=== PATIENT | male | born 1945 | race Caucasian/White ===

== ENCOUNTER 2017-02-16 17:31 | Inpatient (IN) | payer OTHER ==
[~2017-02-16] VITALS: Ht 170.2 cm; Wt 70.3 kg
--- NOTE | ~2017-02-16 | HC ---
[facility] [place] [place] [address] CONSULTATION Name: DMITRIY BRAND Room #: 243-P ADM IN M.R.#: [id number] Admission: 02/16/17 Attend Phys: Rakel Awad Discharge: Date of : 43 Report #: [id number] THIS REPORT FOR: //name// CC: Santiago Matthews REASON FOR CONSULTATION: I was asked to evaluate concerning pulmonary infiltrates and respiratory compromise along with sepsis. HISTORY OF PRESENT ILLNESS: The patient is a 71-year-old with underlying ischemic cardiomyopathy and aortic insufficiency along with significant alcohol intake. He presented on 02/16/2017, with respiratory failure, some chest pain, found to have a large left pleural effusion. He has known cirrhosis with ascites. He had alcoholic hepatitis. . Now on nonrebreather intensive care unit. Blood pressure has been stable, but he has had poor urine output. No documented fever. He was started on cefepime and Levaquin. He had minimal sputum production. The patient was alert, but a poor historian. PAST MEDICAL HISTORY: COPD, coronary artery disease, ischemic cardiomyopathy, moderate aortic regurgitation, hypertension, hyperlipidemia, nephrolithiasis, peripheral vascular disease, AICD, abdominal aortic aneurysm status post stent graft, carotid endarterectomy, bilateral lower extremity atherectomies, and coronary artery bypass grafting. ALLERGIES: To PENICILLIN. MEDICATIONS: As noted on his MAR, now on Levaquin and cefepime. FAMILY HISTORY: Noncontributory. SOCIAL HISTORY: Lives alone, drinks on a daily basis. Previous work as a contractor. No reported chest pain, abdominal pain, diarrhea, dysuria, but now has a [place] catheter. He has peripheral IVs in place. PHYSICAL EXAMINATION: VITAL SIGNS: He is afebrile, heart rate 102, blood pressure 109/54, MAP of 72, he is on a nonrebreather mask. EYES: Unremarkable. MOUTH: Edentulous. NECK: Supple. LUNGS: Decreased breath sounds in the left base posteriorly, crackles heard throughout the right chest. HEART: Regular with a 1/6 diastolic murmur heard at left sternal border. [facility] [address] [place] [address] CONSULTATION Name: DMITRIY BRAND Room #: [facility]-P ADM IN M.R.#: [id number] Admission: 02/16/17 Attend Phys: Rakel Awad Discharge: Date of : 43 Report #: [id number] ABDOMEN: Soft. Liver was palpable below the costal margin and nontender. EXTREMITIES: Unremarkable. LABORATORY STUDIES: Sodium 130, potassium 3.9, bicarbonate 27, creatinine 1, AST 140, ALT 339, bilirubin 2.5, direct 1.3; and alk phos 103. Hemoglobin 13.3, platelet count 128,000, white count 14.8, sedimentation rate 5, immunoglobulin IgG 806. TSH 2.7. ABGs on 15 liters nonrebreather, pO2 of 60, pCO2 of 29, pH 7.5, lactate was 2.2. Sputum shows mixed deanna and Gram stain, culture is pending. Blood cultures are pending. He had a thoracentesis on the left on 02/17/2017, which showed transudate. CT scan of the chest today is pending. CT of the abdomen on 02/16/2017, showed cirrhosis and ascites: Chest x-ray today shows bilateral infiltrates, greatest on the right with left effusion. IMPRESSION: A 71-year-old with cardiomyopathy, both ischemic and valvular with heart failure, aspiration pneumonia likely, recurrent left pleural effusion, alcoholic hepatitis and cirrhosis with associated ascites. Recommend continuing antibiotic coverage for nosocomial organisms. Await sputum culture. Check MRSA screen. Discontinue Levaquin. Continue vancomycin and cefepime. Screen for human immunodeficiency virus and tuberculosis. <ELECTRONICALLY SIGNED> By: Jad Verma MD 02/24/17 0838 0954 1529 Jad Verma MD /nt
--- NOTE | ~2017-02-16 | CNG ---
[facility] [place] [address] CYTO-NONGYN REPORT PROCEDURE Name: DMITRIY ROMERO Room #: 211-P ADM IN M.R.#: [id number] Admission: 02/16/17 Date of : 43 Discharge: Report #: [id number] Path Case #: [id number] CYTOPATHOLOGY REPORT COLLECTION DATE: 02/17/2017 RECEIVED DATE: 02/17/2017 SUBMITTING PHYS: Dr. Sharda Matthews OTHER PHYS: Dr. Ovidio Arriaza CLINICAL HISTORY: Pleural Effusion SPECIMEN(S) RECEIVED: A.Pleural fluid,Left * * * * * * * * * * * * FINAL DIAGNOSIS: A. Left Pleural fluid: NEGATIVE FOR MALIGNANT CELLS. Mesothelial cells and inflammatory cells identified. PATHOLOGIST: Stefania Gonzalez M.D. REPORT ELECTRONICALLY SIGNED BY: Stefania Gonzalez M.D. DATE/TIME: 02/18/2017 16:24 * * * * * * * * * * * * GROSS PATHOLOGY: A. Pleural fluid,Left: The specimen is submitted unfixed, labeled "Dmitriy Romero". Received by the Cytology Department is 25 mL of dark cloudy orange fluid. One ThinPrep slide and a cell block were prepared. (mm 02.17.2017) COMIC BOOK DESIGNER(S): WASHINGTON Waters(ASCP) INITIAL CPT CODE(S): A; 75363, 28304 Professional services performed by [facility] at [facility] [address], [place] [address] Technical services performed by [facility] at [address] [place] [address]., [address], [place] [address]. [facility] [address] [place] [address], [address] [facility] [address] [place] [address] CYTO-NONGYN REPORT PROCEDURE Name: DMITRIY ROMERO Room #: 211-P ADM IN M.R.#: [id number] Admission: 02/16/17 Date of : 43 Discharge: Report #: [id number] Path Case #: [id number] [place] [address] PHONE: [phone] DIRECTOR: Luis Daniel Marie M.D. * * * END OF REPORT * * *
--- NOTE | ~2017-02-16 | EKG ---
[place] [address] [facility] [place] [address] ELECTROCARDIOGRAM REPORT Name: NAYA BRANDJANAY SANABRIA Room #: 211-P ADM IN M.R.#: [id number] Admission: 02/16/17 Attend Phys: Rakel Awad Discharge: Date of : 43 Report #: [id number] THIS REPORT FOR: //name// [facility] ED Test Date: 2017-02-16 Test Time: 17:41:10 Pat Name: DMITRIY BRAND Department: Room: 211 Gender: M Procedures Analyst: Sony PUCKETT : 1945 Requested By: Isaías Rai Order Number: [id number] MD: Jesús Villalpando Measurements Intervals [place] Rate: 86 P: 58 IN: 181 QRS: 111 QRSD: 205 T: -30 QT: 485 QTc: 581 Interpretive Statements Sinus rhythm Probable left atrial enlargement RBBB and LPFB No previous ECG available for comparison Electronically Signed On 02-17-2017 8:47:58 CDT by Jesús Villalpando [email or web address] <ELECTRONICALLY SIGNED> By: Jesús Villalpando MD, [facility] 02/17/17 0847 1741 174 Jesús Villalpando MD, FACC /EPI
--- NOTE | ~2017-02-16 | CNG ---
[facility] [place] [address] CYTO-NONGYN REPORT PROCEDURE Name: ROMERO,DMITRIYJANAY SANABRIA Room #: 243-P ADM IN M.R.#: [id number] Admission: 02/16/17 Date of : 43 Discharge: Report #: [id number] Path Case #: [id number] CYTOPATHOLOGY REPORT COLLECTION DATE: 02/23/2017 RECEIVED DATE: 02/23/2017 SUBMITTING PHYS: Dr. Dolores Bird OTHER PHYS: Dr. Rakel Orozco CLINICAL HISTORY: Pleural effusion; anasarca SPECIMEN(S) RECEIVED: A.Pleural fluid * * * * * * * * * * * * FINAL DIAGNOSIS: A. Pleural fluid: - No malignant epithelial cells identified. - Highly reactive mesothelial cells and acute and chronic inflammatory cells identified. PATHOLOGIST: Payton Mcginnis M.D. REPORT ELECTRONICALLY SIGNED BY: Payton Mcginnis M.D. DATE/TIME: 02/24/2017 11:50 * * * * * * * * * * * * GROSS PATHOLOGY: A. Pleural fluid: The specimen is submitted unfixed, labeled "Dmitriy Romero". Received by the Cytology Department is 10 mL of orange fluid. One ThinPrep slide and a cell block were prepared. (kg 02/23/17) TELEMARKETER(S): WASHINGTON Watson([facility]) INITIAL CPT CODE(S): A; 66468, 17069 Professional services performed by [facility] at [facility] [address], [place] [address] Technical services performed by [facility] at [address] [place] [address]., [address], [place] [address]. [facility] [address] [place] [address] CYTO-NONGYN REPORT PROCEDURE Name: DMITRIY ROMERO Room #: 243-P ADM IN M.R.#: [id number] Admission: 02/16/17 Date of : 43 Discharge: Report #: [id number] Path Case #: [id number] [address] [facility] [address] [place] [address] PHONE: [phone] DIRECTOR: Luis Daniel Marie M.D. * * * END OF REPORT * * *
--- NOTE | ~2017-02-16 | HC ---
[facility] [place] [address] [place] [address] CONSULTATION Name: DMITRIY BRAND Room #: 211-P ADM IN M.R.#: [id number] Admission: 02/16/17 Attend Phys: Rakel Awad Discharge: Date of : 43 Report #: [id number] THIS REPORT FOR: //name// CC: Santiago Matthews DATE OF SERVICE: 02/17/2017 CARDIOLOGY CONSULTATION INDICATION: Dyspnea. HISTORY OF PRESENT ILLNESS: This is a 71-year-old gentleman presenting with increasing shortness of breath for the past several weeks. He has also noticed increased lower extremity swelling as well as an increase in his abdominal girth. He reports some chest pressure with ambulation, probably due to congestion. There is no history of fever, cough or orthopnea. In the ER, he was noted to have a large left pleural effusion, undergoing thoracentesis. PAST MEDICAL HISTORY: CABG in 2002. Recent catheterization in 01/2017 reveals patent sequential left internal mammary artery to the second diagonal artery and LAD. Patent vein graft to the PDA. Occlusion involving the left circumflex artery. History of ischemic cardiomyopathy, EF in the 25% to 30% range. Severe aortic insufficiency. ICD, COPD with chronic tobacco use, peripheral vascular disease including carotid endarterectomy, abdominal aortic stent graft and iliac stent. ALLERGIES: PENICILLIN. MEDICATIONS: Include ____ 400 mg 3 times a day, Lipitor 80 mg daily, spironolactone 25 mg daily, Coreg 12.5 mg twice a day, aspirin once a day, Quinapril 20 mg daily, Effexor. SOCIAL HISTORY: Positive for tobacco use, half a pack per day. FAMILY HISTORY: Negative for premature CAD. REVIEW OF SYSTEMS: A full 10-point review of systems performed. Only the pertinent positives and negatives are described in the HPI. PHYSICAL EXAMINATION: VITAL SIGNS: Blood pressure is 110/60, heart rate is 75 beats per minute. GENERAL APPEARANCE: This is a well-developed, well-nourished male in [address] [address] CONSULTATION Name: SUNDAYDMITRIY Room #: [address] [place] [address] IN M.R.#: [id number] Admission: 02/16/17 Attend Phys: Rakel Awad Discharge: Date of : 43 Report #: [id number] respiratory distress. HEAD AND EYES: Normocephalic. Sclerae are anicteric. ENT: Oral mucosa moist. NECK: Supple. LUNGS: Diminished breath sounds bilaterally. CARDIAC: S1, S2 positive, 2/6 systolic murmur. ABDOMEN: Soft, nontender. Bowel sounds positive. EXTREMITIES: 1-2+ bilateral lower extremity edema. ECG reveals sinus rhythm, right bundle branch block, left posterior hemiblock. LABORATORY VALUES: White count is 10.6, hemoglobin is 13.3. Troponin is negative. Creatinine is 1.3. ProBNP is greater than 19,000. ASSESSMENT: 1. Dyspnea attributed to CHF/left pleural effusion status post thoracentesis. He now has a development of ascites and lower extremity edema. Agree with IV diuresis at this time. 2. Aortic insufficiency/severe, has previously been evaluated by surgery regarding replacement, and deemed not a good candidate. The other option would be percutaneous approach. We will discuss this once he is stabilized from his present condition. 3. CABG, coronary anatomy as defined above. The initial troponin level is unremarkable. His episodes of chest pressure is probably related to fluid overload. Continue with medical therapy. 4. ICD, will undergo interrogation. 5. Chronic obstructive pulmonary disease/tobacco use, smoking cessation is discussed. 6. Hypertension: The blood pressure remains stable on the current regimen. 7. Peripheral vascular disease, stable with no issues at present. Thank you for allowing me to participate in the care of your patient. <ELECTRONICALLY SIGNED> By: Ovidio Orozco MD 02/18/17 0754 0946 1327 Ovidio Orozco MD /nt
--- NOTE | ~2017-02-16 | H ---
[facility] [place] [address] HISTORY AND PHYSICAL Name: DMITRIY BRAND Room #: 211-P ADM IN M.R.#: [id number] Admission: 02/16/17 Attend Phys: Rakel Awad Discharge: Date of : 43 Report #: [id number] THIS REPORT FOR: //name// CC: Santiago Matthews ATTENDING PHYSICIAN: Dr. Campbell Lynn. PRIMARY CARE PHYSICIAN: Dr. Santiago Arriaza. CHIEF COMPLAINT: Shortness of breath and chest pain. HISTORY OF PRESENT ILLNESS: The patient is a 71-year-old male who has a history of ischemic cardiomyopathy with last known EF of 25%-30%. He says for the last 2 weeks, he has had shortness of breath associated with some chest pressure. He has also noticed some increasing lower extremity edema over the last 3 days, he has gained at least 15 pounds. He has also noticed that his abdomen has been somewhat distended over the last 3 days. He has been noticing leg pain which he attributes to his edema, but says that the pain is worse whenever he is walking, resolves when he is at rest. He just had a cardiac catheterization [address] Orozco, which did show a 100% circumflex occlusion with severe hypokinesis of the inferior segment. His grafts from previous CABG were patent. He did mention that he has been out of a few of his medications. He thinks one of them is his diuretic. He denies any history of liver problems, but does admit to drinking alcohol daily. He was noted to be somewhat fluid overloaded in the ER and was given a dose of Lasix. He says he has only been able to avoid a small amount since getting the Lasix. PAST MEDICAL HISTORY: COPD, coronary artery disease with prior VT, hypertension, nephrolithiasis, ischemic cardiomyopathy, hyperlipidemia, peripheral arterial disease. PAST SURGICAL HISTORY: CABG x 6-vessels in 2002, tonsillectomy, AICD placement in 2003 with up sequential generator change in 2013, abdominal aortic aneurysm stent graft, carotid endarterectomy, bilateral lower extremity atherectomy. ALLERGIES: PENICILLIN, unknown reaction. HOME MEDICATIONS: Pentoxifylline 400 mg t.i.d., Lipitor 80 mg daily, fish oil 1000 mg daily, carvedilol 12.5 mg b.i.d., quinapril 20 mg daily, spironolactone 25 mg daily, aspirin 325 mg daily, Effexor XR 150 mg daily, calcium with vitamin D 1 tab daily, folic acid 1 mg daily and alendronate 70 mg weekly. SOCIAL HISTORY: The patient lives alone. He was normally drinking 3-4 beers a day, but when he started feeling fluid overloaded, he cut back to 2 beers a day [address] [address] HISTORY AND PHYSICAL Name: DMITRIY BRAND Room #: 211-P ADM IN M.R.#: [id number] Admission: 02/16/17 Attend Phys: Rakle Awad Discharge: Date of : 43 Report #: [id number] and 2 shots of whiskey each evening. He has been drinking daily at least since the age of 14. He denies any history of alcohol withdrawal. He does smoke, he has also been a lifelong smoker. He had previously smoked cigarettes up to a pack per day for 45 years in the last 10 years, he has switched to little cigars and smokes about 4 to 5 of them a day. FAMILY HISTORY: His brother had an VT, his father also had heart disease. REVIEW OF SYSTEMS: Twelve point review of systems was reviewed with the patient, otherwise negative unless stated in the HPI. PHYSICAL EXAMINATION: GENERAL: The patient is an alert male in no acute distress. VITAL SIGNS: Temperature is 36.4, heart rate 89, respirations 20, blood pressure is 108/62, oxygen 91% on room air. HEENT: PERRLA, sclerae are nonicteric. Oral mucosa is pink and moist. NECK: Supple, mild JVD noted. CARDIOVASCULAR: Normal S1, S2. No murmurs, rubs or gallops. RESPIRATORY: Breath sounds are clear bilaterally. No wheezing or rhonchi. Breathing is nonlabored. ABDOMEN: Soft and nondistended. GASTROINTESTINAL: Abdomen is nontender. There is palpable hepatomegaly. Bowel sounds are positive. VASCULAR: 2+ bilateral lower extremity edema. His feet are very cool and pedal pulses are 1+ with decreased cap refills. NEUROLOGIC: The patient is alert and oriented x 3. Speech is clear. He is moving all extremities equally. No focal neuro deficits noted. LABORATORY DATA: WBC is 10.6, hemoglobin 13.3, platelets 183. Sodium 127, potassium 4.1, BUN 14, creatinine 1.3, and glucose 107. LFTs are all elevated with an AST of 172, ALT 148. Alkaline phosphatase 131. Troponins negative. BNP is 19,271 and EKG showing sinus rhythm and chest x-ray showed moderate to large left effusion with compressive atelectasis versus less likely pneumonitis across the mid left lung and CT of abdomen and pelvis shows no inflammatory process, the liver demonstrates both fatty infiltration and possible cirrhosis. There is moderate ascites in both upper abdominal quadrants. The liver shows moderate steatosis. Influenza negative. ASSESSMENT AND PLAN: 1. Acute on chronic systolic heart failure. The patient was given IV Lasix in the emergency room and has had some mild diuresis. He does have heart catheterization last week showing an ejection fraction of 25-30%. He does have an implantable cardioverter-defibrillator in place, continue spironolactone at home and carvedilol and placed on oral fluid restriction. 2. Large left pleural effusion. This may be related to congestive heart failure. He will likely need thoracentesis. We will order interventional [facility] [address] [place] [address] HISTORY AND PHYSICAL Name: DMITRIY BRAND Room #: 211-P ADM IN .R.#: [id number] Admission: 02/16/17 Attend Phys: Rakel Awad Discharge: Date of : 43 Report #: [id number] radiologist for therapeutic and diagnostic thoracentesis in the morning. 3. Transaminitis. The patient does have possible liver cirrhosis per CT. There may also be some fluid congestion of the liver due to congestive heart failure. We will check a hepatitis panel as well as ammonia level. The patient was informed that these changes could reflect alcohol use. 4. Alcohol abuse. The patient denies any prior problems with alcohol withdrawal, we will place on alcohol withdrawal protocol and use Ativan p.r.n. Start multivitamin and thiamine. 5. Peripheral arterial disease with lower extremity claudication. We will continue pentoxifylline at home. Order arterial Dopplers. 6. History of coronary artery disease with prior CABG. The patient denies any chest pain and troponin is negative. 7. Tobacco abuse. The patient has been advised to quit. 8. Deep venous thrombosis prophylaxis, place sequential compression devices. We will continue to follow the patient closely throughout the hospitalization and make changes based on clinical status. <ELECTRONICALLY SIGNED> By: ULISES Virk 02/18/17 0615 0535 0927 ULISES Virk /nt
[~2017-02-16 17:31] MED LIST: ALDACTONE25 MG; ALENDRONATE SOD70 MG PO; ASPIRIN325; ATORVASTATIN CA40 MG; CALCIUM 600 +1 EAC1 PO; CARVEDILOL25 MG PO; CIPRO250 M1 PO; EFFEXOR XR150 MG; FISH OIL 1,0001 EAC5; FISH OIL 1,001000 M2 PO; FOLIC ACID1 MG PO; PENTOXIFYLLINE400 MG PO; QUINU10 PD PO
[2017-02-16 17:39] VITALS: BP 108/62
[2017-02-16 18:13] LABS: ABSOLUTE NEUTROPHILS 7.3 thou/uL (1.4-8.2); BASOPHILS 0.5 % (0.0-2.0); EOSINOPHILS 0.4 % (0.0-3.0); HEMATOCRIT 39.8 % (42.0-52.0); HEMOGLOBIN 13.3 gm/dL (14.0-18.0); MCHC 33.4 g/dL (28.0-37.0); MCV 95.7 fL (80.0-100.0); MONOCYTES 10.3 % (1.0-8.0); PLATELET COUNT 183 thou/uL (150-400); POLYS 68.8 % (36.0-66.0); RBC 4.16 mil/uL (4.50-6.00); RDW 16.1 % (10.5-14.5); WBC 10.6 thou/uL (4.0-11.0)
[2017-02-16 18:18] LABS: MANUAL DIFF NO
[2017-02-16 18:25] LABS: ANION GAP 14 mmol/L (7-16); BUN 14 mg/dL (7-18); CALCIUM 8.6 mg/dL (8.5-10.1); CHLORIDE 89 mmol/L (98-107); CO2 24 mmol/L (21-32); CREATININE 1.3 mg/dL (0.7-1.3); GLUCOSE 107 mg/dL (74-106); POTASSIUM 4.1 mmol/L (3.5-5.1); SODIUM 127 mmol/L (136-145)
[2017-02-16 18:41] LABS: ALKALINE PHOSPHATASE 131 U/L (46-116); SGOT 172 U/L (15-37); SGPT 148 U/L (30-65); TOTAL BILIRUBIN 1.4 mg/dL (<0.1-1.0); TOTAL PROTEIN 6.3 g/dL (6.4-8.2); TROPONIN-I < 0.04 ng/mL (<0.04-0.07)
[2017-02-16 21:24] VITALS: BP 120/68
[2017-02-16 23:46] VITALS: BP 112/63
[2017-02-17] VITALS (7 sets, daily range): BP systolic 90–150; BP diastolic 50–105
[2017-02-17 03:37] LABS: ALBUMIN 2.8 g/dL (3.4-5.0); CALCIUM 8.3 mg/dL (8.5-10.1); CREATININE 1.3 mg/dL (0.7-1.3); POTASSIUM 3.7 mmol/L (3.5-5.1); TOTAL BILIRUBIN 1.7 mg/dL (<0.1-1.0); TOTAL PROTEIN 5.7 g/dL (6.4-8.2)
[2017-02-17 07:50] LABS: INR 1.8
[2017-02-17 07:52] LABS: PROTIME 17.8 Seconds (9.3-11.4)
[2017-02-17 10:15] LABS: CLARITY CLOUDY; COLOR YELLOW; TOTAL VOLUME 60 mL
[2017-02-17 10:20] LABS: BF NUCLEATED CELLS 934; BF RBC 4493; MANUAL DIFF YES
[2017-02-17 11:50] LABS: BF MACROPHAGE 10; BF NEUTROPHILS 3
[2017-02-17 12:07] LABS: HEPATITIS C VIRUS AB <0.1 (0.0-0.9)
[2017-02-18 04:29] LABS: HEMATOCRIT 36.8 % (42.0-52.0); HEMOGLOBIN 12.4 gm/dL (14.0-18.0); MCH 32.3 pg (26.0-34.0); MCHC 33.8 g/dL (28.0-37.0); MCV 95.7 fL (80.0-100.0); RBC 3.84 mil/uL (4.50-6.00); WBC 10.7 thou/uL (4.0-11.0)
[2017-02-18 04:34] VITALS: BP 115/68
[2017-02-18 04:51] LABS: ALBUMIN 2.6 g/dL (3.4-5.0); CALCIUM 8.2 mg/dL (8.5-10.1); CREATININE 1.3 mg/dL (0.7-1.3); POTASSIUM 3.4 mmol/L (3.5-5.1); TOTAL BILIRUBIN 1.7 mg/dL (<0.1-1.0); TOTAL PROTEIN 5.5 g/dL (6.4-8.2)
[2017-02-18 07:15] VITALS: BP 116/57
[2017-02-18 11:30] VITALS: BP 102/48
[2017-02-18 16:00] VITALS: BP 88/45
[2017-02-18 18:50] LABS: COLLECTION DURATION 24 hours; TOTAL VOLUME 2750 mL
[2017-02-18 19:30] VITALS: BP 97/58
[2017-02-19 04:12] LABS: URINE PROTEIN (MG/DL) 10.2 mg/dL (Not Estab.)
[2017-02-19 05:14] VITALS: BP 105/46
[2017-02-19 08:30] VITALS: BP 99/54
[2017-02-19] MEDS ORDERED: FLOMAX0.4 MG PO (08:56)
[2017-02-19] MEDS ORDERED: LASIX 40 MG TAB40 M1 PO (08:56)
[2017-02-19 09:05] VITALS: BP 99/54
[2017-02-19 09:54] VITALS: BP 99/54
[2017-02-19 11:09] LABS: BODY FLUID AMYLASE 18 U/L (()); BODY FLUID GLUCOSE 70 mg/dL (()); BODY FLUID LDH 77 IU/L (()); BODY FLUID PROTEIN 1.7 g/dL (())
[2017-02-19 11:09] LABS: % SATURATION 5 % (20-39); INR 1.5; IRON 17 ug/dL (65-175); PROTIME 15.4 Seconds (9.3-11.4); TIBC 344 ug/dL (250-450); UIBC 327 ug/dL
[2017-02-19 11:42] VITALS: BP 97/54
[2017-02-19 15:10] LABS: IgG 806 mg/dL (700-1600)
[2017-02-19 16:41] LABS: TOTAL BILIRUBIN 1.8 mg/dL (<0.1-1.0); TOTAL PROTEIN 6.2 g/dL (6.4-8.2)
[2017-02-19 18:01] LABS: ABG SAMPLE TYPE ARTERIAL; BE(vivo) 4.6 mmol/L (-2 to +3); HCO3 26.9 mmol/L (22.0-26.0); LACTATE 1.52 mmol/L (0.5-2.0); O2(CT) 16.6 mL/dL (15.0-23.0); O2Hb 89.5 % (92.0-98.0); PCO2 32.8 mmHg (35.0-45.0); PO2 61.3 mmHg (80.0-100.0); pH 7.532 (7.360-7.450); sO2 94.1 % (92.0-98.0); tCO2 27.9 mmol/L (24.0-30.0)
[2017-02-19 18:02] LABS: ABG COMMENT PT. JUMPS WHEN STUCK; STICK SITE R.BRACHIAL
[2017-02-19 21:04] VITALS: BP 96/40
[2017-02-20 04:41] LABS: ALBUMIN 2.7 g/dL (3.4-5.0); CALCIUM 8.1 mg/dL (8.5-10.1); TOTAL BILIRUBIN 1.7 mg/dL (<0.1-1.0); TOTAL PROTEIN 5.8 g/dL (6.4-8.2)
[2017-02-20 05:53] LABS: POTASSIUM 2.6 mmol/L (3.5-5.1)
[2017-02-20 08:00] VITALS: BP 113/59
[2017-02-20 11:10] LABS: CERULOPLASMIN 40.4 mg/dL (16.0-31.0)
[2017-02-20 12:00] VITALS: BP 98/49
[2017-02-20 14:16] LABS: MAGNESIUM 2.2 mg/dL (1.8-2.4); POTASSIUM 3.4 mmol/L (3.5-5.1)
[2017-02-20 16:00] VITALS: BP 105/54
[2017-02-20 20:44] VITALS: BP 96/46
[2017-02-20 23:26] VITALS: BP 115/65
[2017-02-21] VITALS (7 sets, daily range): BP systolic 83–102; BP diastolic 34–57
[2017-02-21 03:56] LABS: ALBUMIN 2.6 g/dL (3.4-5.0); CALCIUM 8.2 mg/dL (8.5-10.1); PHOSPHORUS 3.2 mg/dL (2.5-4.9); POTASSIUM 3.4 mmol/L (3.5-5.1)
[2017-02-21 05:08] LABS: ABG SAMPLE TYPE ARTERIAL; BE(vivo) 1.9 mmol/L (-2 to +3); HCO3 24.4 mmol/L (22.0-26.0); LACTATE 2.02 mmol/L (0.5-2.0); O2(CT) 15.9 mL/dL (15.0-23.0); O2Hb 88.2 % (92.0-98.0); PCO2 31.9 mmHg (35.0-45.0); PO2 56.1 mmHg (80.0-100.0); STICK SITE L.BRACHIAL; pH 7.502 (7.360-7.450); tCO2 25.4 mmol/L (24.0-30.0)
[2017-02-21 06:36] LABS: HEMATOCRIT 34.5 % (42.0-52.0); HEMOGLOBIN 11.7 gm/dL (14.0-18.0); MCH 31.9 pg (26.0-34.0); MCHC 33.7 g/dL (28.0-37.0); MCV 94.5 fL (80.0-100.0); RBC 3.65 mil/uL (4.50-6.00); RDW 16.1 % (10.5-14.5); WBC 10.5 thou/uL (4.0-11.0)
[2017-02-21 06:53] LABS: ALBUMIN 2.6 g/dL (3.4-5.0); CALCIUM 8.1 mg/dL (8.5-10.1); CREATININE 1.1 mg/dL (0.7-1.3); POTASSIUM 3.6 mmol/L (3.5-5.1); TOTAL PROTEIN 5.9 g/dL (6.4-8.2)
[2017-02-22 00:31] LABS: ABG SAMPLE TYPE ARTERIAL; BE(vivo) 0 mmol/L (-2 to +3); HCO3 21.6 mmol/L (22.0-26.0); LACTATE 2.82 mmol/L (0.5-2.0); O2(CT) 16.1 mL/dL (15.0-23.0); O2Hb 92.4 % (92.0-98.0); PCO2 26.8 mmHg (35.0-45.0); PO2 67.7 mmHg (80.0-100.0); STICK SITE R.RADIAL; pH 7.525 (7.360-7.450); sO2 95.5 % (92.0-98.0); tCO2 22.5 mmol/L (24.0-30.0)
[2017-02-22 02:45] VITALS: BP 105/65
[2017-02-22 03:13] LABS: ALBUMIN 2.4 g/dL (3.4-5.0); CREATININE 1.2 mg/dL (0.7-1.3); PHOSPHORUS 2.9 mg/dL (2.5-4.9); POTASSIUM 4.1 mmol/L (3.5-5.1)
[2017-02-22 05:46] VITALS: BP 116/63
[2017-02-22 08:40] VITALS: BP 114/61
[2017-02-22 10:39] LABS: ALBUMIN 2.4 g/dL (3.4-5.0); DIRECT BILIRUBIN 1.3 mg/dL (<0.1-0.3); TOTAL BILIRUBIN 2.5 mg/dL (<0.1-1.0); TOTAL PROTEIN 5.4 g/dL (6.4-8.2)
[2017-02-22 11:35] VITALS: BP 118/65
[2017-02-22 12:06] LABS: MITOCHONDRIAL ANTIBODY 4.9 Units (0.0-20.0)
[2017-02-22 17:15] VITALS: BP 109/54
[2017-02-22 20:25] VITALS: BP 96/63
[2017-02-23] VITALS (20 sets, daily range): BP systolic 83–117; BP diastolic 38–64
[2017-02-23 03:28] LABS: ALBUMIN 2.6 g/dL (3.4-5.0); CALCIUM 8.6 mg/dL (8.5-10.1); PHOSPHORUS 2.4 mg/dL (2.5-4.9); POTASSIUM 3.9 mmol/L (3.5-5.1)
[2017-02-23 03:35] LABS: ABG SAMPLE TYPE ARTERIAL; BE(vivo) 1.1 mmol/L (-2 to +3); HCO3 23.1 mmol/L (22.0-26.0); LACTATE 2.27 mmol/L (0.5-2.0); O2(CT) 18.1 mL/dL (15.0-23.0); O2Hb 88.7 % (92.0-98.0); PCO2 29.8 mmHg (35.0-45.0); PO2 60.2 mmHg (80.0-100.0); STICK SITE R.BRACHIAL; pH 7.507 (7.360-7.450); sO2 93.5 % (92.0-98.0)
[2017-02-23 08:38] LABS: HEMATOCRIT 40.1 % (42.0-52.0); HEMOGLOBIN 13.3 gm/dL (14.0-18.0); MCH 31.4 pg (26.0-34.0); MCHC 33.2 g/dL (28.0-37.0); MCV 94.7 fL (80.0-100.0); RBC 4.23 mil/uL (4.50-6.00); RDW 16.2 % (10.5-14.5); WBC 14.8 thou/uL (4.0-11.0)
[2017-02-23 09:25] LABS: APTT 34.8 Seconds (24.5-32.8); INR 1.4; PROTIME 14.5 Seconds (9.3-11.4)
[2017-02-23 09:45] LABS: ABG SAMPLE TYPE ARTERIAL; BE(vivo) 0.9 mmol/L (-2 to +3); HCO3 24.2 mmol/L (22.0-26.0); LACTATE 1.92 mmol/L (0.5-2.0); O2(CT) 17.5 mL/dL (15.0-23.0); O2Hb 87.7 % (92.0-98.0); PCO2 34.8 mmHg (35.0-45.0); PO2 59.9 mmHg (80.0-100.0); STICK SITE R.BRACHIAL; sO2 92.4 % (92.0-98.0); tCO2 25.3 mmol/L (24.0-30.0)
[2017-02-23 13:26] LABS: CLARITY CLOUDY; COLOR YELLOW; MANUAL DIFF YES; TOTAL VOLUME 60 mL
[2017-02-23 13:27] LABS: BF NUCLEATED CELLS 1246; BF RBC 5943
[2017-02-23 14:51] LABS: BF MACROPHAGE 5; BF NEUTROPHILS 55
[2017-02-23 17:12] LABS: HIV ANTIBODY Non Reactive (Non Reactive)
[2017-02-23 20:11] LABS: ABG SAMPLE TYPE ARTERIAL; BE(vivo) -0.2 mmol/L (-2 to +3); HCO3 22.4 mmol/L (22.0-26.0); LACTATE 1.39 mmol/L (0.5-2.0); O2(CT) 17.8 mL/dL (15.0-23.0); O2Hb 96.3 % (92.0-98.0); PCO2 30.6 mmHg (35.0-45.0); PO2 99.7 mmHg (80.0-100.0); pH 7.482 (7.360-7.450); tCO2 23.3 mmol/L (24.0-30.0)
[2017-02-23 20:12] LABS: Face Shield 80 %; STICK SITE R.RADIAL
[2017-02-24] VITALS (24 sets, daily range): BP systolic 95–125; BP diastolic 39–99
[2017-02-24 05:30] LABS: ABG SAMPLE TYPE ARTERIAL; BE(vivo) 0.4 mmol/L (-2 to +3); HCO3 24.1 mmol/L (22.0-26.0); LACTATE 1.68 mmol/L (0.5-2.0); O2(CT) 15.6 mL/dL (15.0-23.0); O2Hb 88.7 % (92.0-98.0); PCO2 36.1 mmHg (35.0-45.0); PO2 59.7 mmHg (80.0-100.0); pH 7.443 (7.360-7.450); tCO2 25.2 mmol/L (24.0-30.0)
[2017-02-24 05:31] LABS: Face Shield 95 %; STICK SITE R.RADIAL
[2017-02-24 05:39] LABS: HEMATOCRIT 33.7 % (42.0-52.0); HEMOGLOBIN 11.4 gm/dL (14.0-18.0); MCH 31.7 pg (26.0-34.0); MCHC 33.7 g/dL (28.0-37.0); MCV 94.1 fL (80.0-100.0); PLATELET COUNT 100 thou/uL (150-400); RBC 3.58 mil/uL (4.50-6.00); RDW 16.3 % (10.5-14.5)
[2017-02-24 05:52] LABS: INR 1.3; PROTIME 13.2 Seconds (9.3-11.4)
[2017-02-24 05:53] LABS: ALBUMIN 1.8 g/dL (3.4-5.0); CALCIUM 7.8 mg/dL (8.5-10.1); CREATININE 0.7 mg/dL (0.7-1.3); POTASSIUM 3.6 mmol/L (3.5-5.1); TOTAL BILIRUBIN 1.3 mg/dL (<0.1-1.0); TOTAL PROTEIN 4.8 g/dL (6.4-8.2)
[2017-02-24 05:57] LABS: MANUAL DIFF YES
[2017-02-24 08:03] LABS: ABSOLUTE NEUTROPHILS 7.2 thou/uL (1.4-8.2); TOTAL CELL COUNT 100
[2017-02-24 08:04] LABS: ANISOCYTOSIS 1+; BURR CELLS 1+
[2017-02-24 09:38] LABS: ABG SAMPLE TYPE ARTERIAL; BE(vivo) 0.1 mmol/L (-2 to +3); HCO3 23.5 mmol/L (22.0-26.0); LACTATE 1.44 mmol/L (0.5-2.0); O2(CT) 16.2 mL/dL (15.0-23.0); PCO2 34.1 mmHg (35.0-45.0); PO2 121.8 mmHg (80.0-100.0); STICK SITE L.BRACHIAL; pH 7.457 (7.360-7.450); sO2 98.6 % (92.0-98.0); tCO2 24.6 mmol/L (24.0-30.0)
[2017-02-25] VITALS (24 sets, daily range): BP systolic 109–126; BP diastolic 51–63
[2017-02-25 05:47] LABS: HEMATOCRIT 34.3 % (42.0-52.0); HEMOGLOBIN 11.4 gm/dL (14.0-18.0); MCH 31.4 pg (26.0-34.0); MCHC 33.1 g/dL (28.0-37.0); MCV 94.7 fL (80.0-100.0); RBC 3.63 mil/uL (4.50-6.00); RDW 16.3 % (10.5-14.5)
[2017-02-25 05:51] LABS: MANUAL DIFF YES
[2017-02-25 05:59] LABS: INR 1.2; PROTIME 12.8 Seconds (9.3-11.4)
[2017-02-25 06:00] LABS: CALCIUM 8.1 mg/dL (8.5-10.1); CREATININE 0.6 mg/dL (0.7-1.3); POTASSIUM 3.6 mmol/L (3.5-5.1); TOTAL BILIRUBIN 1.5 mg/dL (<0.1-1.0); TOTAL PROTEIN 5.3 g/dL (6.4-8.2)
[2017-02-25 08:06] LABS: ABSOLUTE NEUTROPHILS 10.8 thou/uL (1.4-8.2); TOTAL CELL COUNT 100
[2017-02-25 08:08] LABS: ANISOCYTOSIS 1+
[2017-02-25 08:09] LABS: BURR CELLS 1+; SCHISTOCYTES RARE
[2017-02-25 08:10] LABS: PLATELET COUNT 81 thou/uL (150-400)
[2017-02-25 13:30] LABS: NIL (NEGATIVE) CONTROL SPOT CT 0; PANEL A SPOT CT 0; PANEL B SPOT CT 0; POSITIVE CONTROL SPOT COUNT > 20; T-SPOT.TB Negative
[2017-02-25 17:10] LABS: BODY FLUID ALBUMIN 0.9 g/dL (()); BODY FLUID AMYLASE 11 U/L (()); BODY FLUID GLUCOSE 94 mg/dL (()); BODY FLUID LDH 88 IU/L (()); BODY FLUID PROTEIN 1.6 g/dL (())
[2017-02-26] VITALS (25 sets, daily range): BP systolic 104–129; BP diastolic 48–67
[2017-02-26 05:39] LABS: ABG SAMPLE TYPE ARTERIAL; BE(vivo) 1.3 mmol/L (-2 to +3); HCO3 23.9 mmol/L (22.0-26.0); O2(CT) 15.7 mL/dL (15.0-23.0); O2Hb 92.8 % (92.0-98.0); PCO2 31.5 mmHg (35.0-45.0); pH 7.498 (7.360-7.450); sO2 94.8 % (92.0-98.0); tCO2 24.9 mmol/L (24.0-30.0)
[2017-02-26 05:40] LABS: Pressure Support 6 cm H20; STICK SITE R.RADIAL
[2017-02-26 06:41] LABS: DIRECT BILIRUBIN 0.9 mg/dL (<0.1-0.3); TOTAL BILIRUBIN 1.7 mg/dL (<0.1-1.0); TOTAL PROTEIN 5.3 g/dL (6.4-8.2)
[2017-02-26 08:25] LABS: CREATININE 0.7 mg/dL (0.7-1.3); MAGNESIUM 2.1 mg/dL (1.8-2.4); POTASSIUM 3.8 mmol/L (3.5-5.1); TOTAL BILIRUBIN 1.6 mg/dL (<0.1-1.0); TOTAL PROTEIN 5.3 g/dL (6.4-8.2)
[2017-02-27] VITALS (24 sets, daily range): BP systolic 104–134; BP diastolic 51–93
[2017-02-27 05:05] LABS: HEMATOCRIT 33.3 % (42.0-52.0); HEMOGLOBIN 11.2 gm/dL (14.0-18.0); MCH 31.8 pg (26.0-34.0); MCHC 33.6 g/dL (28.0-37.0); MCV 94.8 fL (80.0-100.0); RBC 3.51 mil/uL (4.50-6.00); RDW 17.2 % (10.5-14.5); WBC 10.7 thou/uL (4.0-11.0)
[2017-02-27 05:44] LABS: CALCIUM 8.4 mg/dL (8.5-10.1); CREATININE 0.7 mg/dL (0.7-1.3); MAGNESIUM 2.3 mg/dL (1.8-2.4); POTASSIUM 4.3 mmol/L (3.5-5.1); TOTAL BILIRUBIN 1.6 mg/dL (<0.1-1.0); TOTAL PROTEIN 5.6 g/dL (6.4-8.2)
[2017-02-28] VITALS (24 sets, daily range): BP systolic 93–143; BP diastolic 51–90
[2017-02-28 05:09] LABS: BASOPHILS 1.2 % (0.0-2.0); EOSINOPHILS 0.1 % (0.0-3.0); HEMATOCRIT 34.6 % (42.0-52.0); HEMOGLOBIN 11.3 gm/dL (14.0-18.0); LYMPHOCYTES 8.2 % (24.0-44.0); MCH 31.1 pg (26.0-34.0); MCHC 32.7 g/dL (28.0-37.0); MCV 95.3 fL (80.0-100.0); MONOCYTES 8.7 % (1.0-8.0); PLATELET COUNT 71 thou/uL (150-400); POLYS 81.8 % (36.0-66.0); RBC 3.63 mil/uL (4.50-6.00); RDW 17.2 % (10.5-14.5); WBC 17.1 thou/uL (4.0-11.0)
[2017-02-28 05:15] LABS: MANUAL DIFF NO
[2017-02-28 05:18] LABS: ABG SAMPLE TYPE ARTERIAL; BE(vivo) -5.2 mmol/L (-2 to +3); HCO3 18.8 mmol/L (22.0-26.0); O2(CT) 15.5 mL/dL (15.0-23.0); PCO2 31.9 mmHg (35.0-45.0); PO2 71.4 mmHg (80.0-100.0); pH 7.388 (7.360-7.450); sO2 94.4 % (92.0-98.0); tCO2 19.8 mmol/L (24.0-30.0)
[2017-02-28 05:19] LABS: LACTATE 3.52 mmol/L (0.5-2.0); STICK SITE R.RADIAL
[2017-02-28 05:20] LABS: Pressure Support 6 cm H20
[2017-02-28 05:24] LABS: ALBUMIN 2.2 g/dL (3.4-5.0); CALCIUM 8.1 mg/dL (8.5-10.1); CREATININE 1.1 mg/dL (0.7-1.3); MAGNESIUM 2.6 mg/dL (1.8-2.4); POTASSIUM 4.9 mmol/L (3.5-5.1); TOTAL BILIRUBIN 3.4 mg/dL (<0.1-1.0); TOTAL PROTEIN 5.7 g/dL (6.4-8.2)
[2017-03-01] VITALS (24 sets, daily range): BP systolic 106–130; BP diastolic 49–69
[2017-03-01 05:43] LABS: HEMATOCRIT 32.2 % (42.0-52.0); HEMOGLOBIN 10.6 gm/dL (14.0-18.0); MCH 31.4 pg (26.0-34.0); MCHC 33.1 g/dL (28.0-37.0); MCV 94.9 fL (80.0-100.0); RBC 3.39 mil/uL (4.50-6.00); WBC 18.9 thou/uL (4.0-11.0)
[2017-03-01 05:56] LABS: MANUAL DIFF YES
[2017-03-01 06:01] LABS: ALBUMIN 2.2 g/dL (3.4-5.0); CALCIUM 8.2 mg/dL (8.5-10.1); CREATININE 1.6 mg/dL (0.7-1.3); POTASSIUM 5.5 mmol/L (3.5-5.1); TOTAL BILIRUBIN 2.8 mg/dL (<0.1-1.0); TOTAL PROTEIN 5.5 g/dL (6.4-8.2)
[2017-03-01 06:42] LABS: ANISOCYTOSIS 2+; MICROCYTES 3+; NUCLEATED RBCS 6 /100WBC; PLATELET COUNT 55 thou/uL (150-400); PLATELET ESTIMATE DECREASED; POLYCHROMASIA 1+; TOTAL CELL COUNT 100
[2017-03-01 07:45] LABS: MAGNESIUM 2.6 mg/dL (1.8-2.4); PHOSPHORUS 4.7 mg/dL (2.5-4.9)
[2017-03-01 07:58] LABS: CALCIUM 8.6 mg/dL (8.5-10.1); CREATININE 1.6 mg/dL (0.7-1.3); POTASSIUM 5.4 mmol/L (3.5-5.1)
[2017-03-01 08:01] LABS: ALBUMIN 2.1 g/dL (3.4-5.0); PHOSPHORUS 4.5 mg/dL (2.5-4.9)
[2017-03-01 20:15] LABS: ABG SAMPLE TYPE ARTERIAL; BE(vivo) -6.9 mmol/L (-2 to +3); LACTATE 1.33 mmol/L (0.5-2.0); O2(CT) 14.1 mL/dL (15.0-23.0); O2Hb 90.1 % (92.0-98.0); PCO2 29.2 mmHg (35.0-45.0); PO2 67.2 mmHg (80.0-100.0); Pressure Support 4 cm H20; STICK SITE L.BRACHIAL; TIDAL VOLUME 880 ml; pH 7.383 (7.360-7.450); sO2 93.4 % (92.0-98.0); tCO2 17.9 mmol/L (24.0-30.0)
[2017-03-02] VITALS (23 sets, daily range): BP systolic 121–164; BP diastolic 49–89
[2017-03-02 04:37] LABS: ABG SAMPLE TYPE ARTERIAL; BE(vivo) -5.4 mmol/L (-2 to +3); HCO3 19.9 mmol/L (22.0-26.0); LACTATE 1.33 mmol/L (0.5-2.0); O2(CT) 14.7 mL/dL (15.0-23.0); O2Hb 92.9 % (92.0-98.0); PCO2 38.4 mmHg (35.0-45.0); PO2 82.4 mmHg (80.0-100.0); pH 7.333 (7.360-7.450); sO2 95.5 % (92.0-98.0); tCO2 21.1 mmol/L (24.0-30.0)
[2017-03-02 04:38] LABS: Pressure Support 4 cm H20; STICK SITE L.BRACHIAL; TIDAL VOLUME 850 ml
[2017-03-02 05:47] LABS: MCHC 33.3 g/dL (28.0-37.0)
[2017-03-02 05:50] LABS: HEMATOCRIT 30.7 % (42.0-52.0); HEMOGLOBIN 10.2 gm/dL (14.0-18.0); MCH 31.6 pg (26.0-34.0); MCV 94.9 fL (80.0-100.0); RBC 3.24 mil/uL (4.50-6.00); RDW 18.1 % (10.5-14.5)
[2017-03-02 06:05] LABS: CALCIUM 8.3 mg/dL (8.5-10.1); CREATININE 1.7 mg/dL (0.7-1.3); POTASSIUM 4.9 mmol/L (3.5-5.1); TOTAL BILIRUBIN 3.7 mg/dL (<0.1-1.0); TOTAL PROTEIN 5.4 g/dL (6.4-8.2)
[2017-03-02 06:08] LABS: INR 1.9
[2017-03-02 06:10] LABS: APTT 145.2 Seconds (24.5-32.8); PROTIME 19.4 Seconds (9.3-11.4)
[2017-03-02 07:58] LABS: WBC 21.2 thou/uL (4.0-11.0)
[2017-03-02 09:20] LABS: TROPONIN-I 1.29 ng/mL (<0.04-0.07)
[2017-03-03] VITALS (17 sets, daily range): BP systolic 115–136; BP diastolic 36–63
[2017-03-03 05:28] LABS: ABG SAMPLE TYPE ARTERIAL; BE(vivo) -6.4 mmol/L (-2 to +3); HCO3 21.7 mmol/L (22.0-26.0); LACTATE 1.05 mmol/L (0.5-2.0); O2(CT) 15.1 mL/dL (15.0-23.0); O2Hb 94.2 % (92.0-98.0); PCO2 55.1 mmHg (35.0-45.0); PO2 93.1 mmHg (80.0-100.0); sO2 95.4 % (92.0-98.0); tCO2 23.4 mmol/L (24.0-30.0)
[2017-03-03 05:30] LABS: STICK SITE R.RADIAL; pH 7.213 (7.360-7.450)
[2017-03-03 05:32] LABS: Pressure Support 14 cm H20
[2017-03-03 05:37] LABS: RDW 18.5 % (10.5-14.5)
[2017-03-03 05:39] LABS: HEMATOCRIT 31.4 % (42.0-52.0); HEMOGLOBIN 10.4 gm/dL (14.0-18.0); MCH 32.1 pg (26.0-34.0); MCHC 33.2 g/dL (28.0-37.0); MCV 96.6 fL (80.0-100.0); RBC 3.25 mil/uL (4.50-6.00); WBC 18.5 thou/uL (4.0-11.0)
[2017-03-03 05:41] LABS: MANUAL DIFF YES
[2017-03-03 06:00] LABS: ALBUMIN 1.8 g/dL (3.4-5.0); CREATININE 1.8 mg/dL (0.7-1.3); POTASSIUM 4.9 mmol/L (3.5-5.1); TOTAL BILIRUBIN 4.7 mg/dL (<0.1-1.0)
[2017-03-03 06:17] LABS: TOTAL PROTEIN 5.9 g/dL (6.4-8.2)
[2017-03-03 06:39] LABS: ABSOLUTE NEUTROPHILS 15.5 thou/uL (1.4-8.2); METAMYELOCYTES 3 %; MYELOCYTES 2 %; NUCLEATED RBCS 1 /100WBC; TOTAL CELL COUNT 100
[2017-03-03 06:40] LABS: MICROCYTES 1+
[2017-03-03 06:41] LABS: BURR CELLS 4+; SCHISTOCYTES OCCASIONAL
[2017-03-03 06:42] LABS: PLATELET COUNT 74 thou/uL (150-400); PLATELET ESTIMATE DECREASED; POLYCHROMASIA 3+
[2017-03-03 06:43] LABS: ANISOCYTOSIS 3+; MACROCYTES 2+
[2017-03-03 15:20] LABS: ABG SAMPLE TYPE ARTERIAL; BE(vivo) -7.3 mmol/L (-2 to +3); HCO3 21.3 mmol/L (22.0-26.0); LACTATE 0.94 mmol/L (0.5-2.0); O2(CT) 15.6 mL/dL (15.0-23.0); O2Hb 95.9 % (92.0-98.0); PCO2 57.6 mmHg (35.0-45.0); PO2 112.8 mmHg (80.0-100.0)
[2017-03-03 15:21] LABS: Pressure Support 12 cm H20; STICK SITE R.RADIAL; pH 7.185 (7.360-7.450)
[2017-03-04 00:20] VITALS: BP 123/46
[2017-03-04 04:21] VITALS: BP 133/57
[2017-03-04 04:54] LABS: HEMATOCRIT 31.9 % (42.0-52.0); HEMOGLOBIN 10.2 gm/dL (14.0-18.0); MCH 31.6 pg (26.0-34.0); MCHC 31.9 g/dL (28.0-37.0); MCV 99.1 fL (80.0-100.0); RBC 3.22 mil/uL (4.50-6.00); RDW 18.8 % (10.5-14.5); WBC 14.4 thou/uL (4.0-11.0)
[2017-03-04 08:00] VITALS: BP 118/45
[2017-03-04 08:45] VITALS: BP 112/43
[2017-03-04 09:30] VITALS: BP 111/44
== END 2017-03-04 11:50 | DRG 177 ==
LOC: ER 17:31 → 2N 20:35 → EROBS 20:35 → 2N 21:01 → ICU 02-23 08:59
PROVIDERS: Family Medicine; Hospitalist; Internal Medicine; Internal Medicine Gastroenterology; Internal Medicine Pulmonary Disease; Nuclear Medicine Nuclear Cardiology; Nurse Practitioner Acute Care; Nurse Practitioner Adult Health; Physician Assistant; Specialist
PROC: 02HV33Z Insertion of Infusion Device into Superior Vena Cava, Percutaneous Approach (ICD-10-PCS; principal; 2017-02-23)
PROC: 0W9B4ZX Drainage of Left Pleural Cavity, Percutaneous Endoscopic Approach, Diagnostic (ICD-10-PCS; principal; 2017-02-23)
PROC: 5A09557 Assistance with Respiratory Ventilation, Greater than 96 Consecutive Hours, Continuous Positive Airway Pressure (ICD-10-PCS; 2017-02-24)
DX: J69.0 Pneumonitis due to inhalation of food and vomit (principal); E43 Unspecified severe protein-calorie malnutrition; I50.43 Acute on chronic combined systolic (congestive) and diastolic (congestive) heart failure; I21.11 ST elevation (STEMI) myocardial infarction involving right coronary artery; J96.01 Acute respiratory failure with hypoxia; G93.41 Metabolic encephalopathy; J90 Pleural effusion, not elsewhere classified; F10.239 Alcohol dependence with withdrawal, unspecified; N17.9 Acute kidney failure, unspecified; E87.0 Hyperosmolality and hypernatremia; I70.92 Chronic total occlusion of artery of the extremities; Z88.0 Allergy status to penicillin; F17.210 Nicotine dependence, cigarettes, uncomplicated; J44.9 Chronic obstructive pulmonary disease, unspecified; I25.10 Atherosclerotic heart disease of native coronary artery without angina pectoris; Z95.1 Presence of aortocoronary bypass graft; I35.1 Nonrheumatic aortic (valve) insufficiency; Z95.810 Presence of automatic (implantable) cardiac defibrillator; I73.9 Peripheral vascular disease, unspecified; I11.0 Hypertensive heart disease with heart failure; I25.5 Ischemic cardiomyopathy; E78.5 Hyperlipidemia, unspecified; I95.2 Hypotension due to drugs; T50.2X5A Adverse effect of carbonic-anhydrase inhibitors, benzothiadiazides and other diuretics, initial encounter; Y92.89 Other specified places as the place of occurrence of the external cause; Z68.24 Body mass index [BMI] 24.0-24.9, adult; E87.5 Hyperkalemia; K75.9 Inflammatory liver disease, unspecified; D69.6 Thrombocytopenia, unspecified; Z51.5 Encounter for palliative care; Z66 Do not resuscitate
CPT/HCPCS: 10078; 10081; 27000